=== PATIENT | female | born 1930 | race Caucasian/White ===

== ENCOUNTER → 2016-10-17 | Outpatient (CLI) | payer OTHER ==
[2016-10-17 12:40] LABS: ALBUMIN 3.9 GM/DL (3.2-5.2); ALBUMIN/GLOBULIN RATIO 1.34 (1.00-1.93); BILIRUBIN,TOTAL 0.7 MG/DL (0.2-1.0); CALCIUM LEVEL 9.3 MG/DL (8.8-10.2); CREATININE FOR GFR 1.12 MG/DL (0.55-1.02); POTASSIUM SERUM 4.4 MEQ/L (3.5-5.1); TOTAL PROTEIN 6.8 GM/DL (6.4-8.2)
== END | disposition home or self-care (01) ==
LOC: M WUC 09:31
PROVIDERS: ATTEND Internal Medicine
DX: E11.9 Type 2 diabetes mellitus without complications (principal)

== ENCOUNTER → 2017-04-30 | Outpatient (REF) | payer OTHER ==
[2017-04-30 15:14] LABS: MEAN CORPUSCULAR HEMOGLOBIN 28.2 pg (27.0-33.0); MEAN CORPUSCULAR HGB CONC 32.3 g/dl (32.0-36.5); MEAN CORPUSCULAR VOLUME 87.2 fl (80.0-96.0); RED CELL DISTRIBUTION WIDTH 13.6 % (11.5-14.5)
[2017-04-30 15:22] LABS: ALBUMIN 3.9 GM/DL (3.2-5.2); ALBUMIN/GLOBULIN RATIO 1.26 (1.00-1.93); BILIRUBIN,TOTAL 0.4 MG/DL (0.2-1.0); CREATININE FOR GFR 1.12 MG/DL (0.55-1.02); POTASSIUM SERUM 4.7 MEQ/L (3.5-5.1)
== END ==
LOC: M SFHCPLAZ 10:35
PROVIDERS: ATTEND Internal Medicine
DX: E11.9 Type 2 diabetes mellitus without complications (principal); K21.9 Gastro-esophageal reflux disease without esophagitis; E78.00 Pure hypercholesterolemia, unspecified

== ENCOUNTER → 2017-10-31 | Outpatient (REF) | payer OTHER ==
[2017-10-31 14:22] LABS: PTH INTACT 8.7 PG/ML (14.0-72.0)
[2017-10-31 14:23] LABS: ALBUMIN 3.7 GM/DL (3.2-5.2); ALBUMIN/GLOBULIN RATIO 1.23 (1.00-1.93); ALKALINE PHOSPHATASE 52 U/L (45-117); ALT/SGPT 27 U/L (12-78); ANION GAP 9 MEQ/L (8-16); AST/SGOT 21 U/L (7-37); BILIRUBIN,TOTAL 0.5 MG/DL (0.2-1.0); BLOOD UREA NITROGEN 36 MG/DL (7-18); CALCIUM LEVEL 9.5 MG/DL (8.8-10.2); CARBON DIOXIDE LEVEL 30 MEQ/L (21-32); CHLORIDE LEVEL 102 MEQ/L (98-107); CREATININE FOR GFR 1.13 MG/DL (0.55-1.02); GLOMERULAR FILTRATION RATE 48.4 (>32); GLUCOSE, FASTING 113 MG/DL (70-100); POTASSIUM SERUM 4.3 MEQ/L (3.5-5.1); SODIUM LEVEL 141 MEQ/L (136-145); TOTAL PROTEIN 6.7 GM/DL (6.4-8.2)
[2017-10-31 15:03] LABS: ESTIMATED AVERAGE GLUCOSE 143 MG/DL (60-110); HEMOGLOBIN A1c 6.6 %
== END ==
LOC: M SFHCPLAZ 10:03
DX: E11.22 Type 2 diabetes mellitus with diabetic chronic kidney disease (principal); N18.3 Chronic kidney disease, stage 3 (moderate)
CPT/HCPCS: 80053

== ENCOUNTER → 2018-04-30 | Outpatient (REF) | payer OTHER ==
[2018-04-30 11:44] LABS: HEMATOCRIT 38.9 % (36.0-47.0); HEMOGLOBIN 12.8 g/dl (12.0-15.5); MEAN CORPUSCULAR HEMOGLOBIN 27.5 pg (27.0-33.0); MEAN CORPUSCULAR HGB CONC 32.9 g/dl (32.0-36.5); MEAN CORPUSCULAR VOLUME 83.5 fl (80.0-96.0); PLATELET COUNT, AUTOMATED 219 10^3/uL (150-450); RED BLOOD COUNT 4.66 10^6/uL (4.00-5.40); RED CELL DISTRIBUTION WIDTH 14.6 % (11.5-14.5); WHITE BLOOD COUNT 4.8 10^3/uL (4.0-10.0)
[2018-04-30 12:26] LABS: ALBUMIN 3.4 GM/DL (3.2-5.2); ALKALINE PHOSPHATASE 61 U/L (45-117); ALT/SGPT 27 U/L (12-78); ANION GAP 8 MEQ/L (8-16); AST/SGOT 17 U/L (7-37); BILIRUBIN,TOTAL 0.4 MG/DL (0.2-1.0); BLOOD UREA NITROGEN 38 MG/DL (7-18); CALCIUM LEVEL 9.7 MG/DL (8.8-10.2); CARBON DIOXIDE LEVEL 31 MEQ/L (21-32); CHLORIDE LEVEL 104 MEQ/L (98-107); CHOLESTEROL LEVEL 156 MG/DL (<200); CHOLESTEROL RISK RATIO 1.793 (<5); GLOMERULAR FILTRATION RATE 45.1 (>32); GLUCOSE, FASTING 95 MG/DL (70-100); HDL CHOLESTEROL 87 MG/DL (>40); MAGNESIUM LEVEL 1.7 MG/DL (1.8-2.4); NON-HDL-C 69 MG/DL; SODIUM LEVEL 143 MEQ/L (136-145); TOTAL PROTEIN 6.5 GM/DL (6.4-8.2); TRIGLYCERIDES LEVEL 105 MG/DL (<150)
[2018-04-30 12:27] LABS: TOTAL 25(OH) VITAMIN D 80.1 NG/ML (30.0-100.0)
[2018-04-30 12:28] LABS: PTH INTACT 19.6 PG/ML (18.5-88.0)
[2018-04-30 12:42] LABS: CREATININE, URINE 83.3 MG/DL; MALB URINE SIEMENS 8.6 MG/L; MAU/CREAT RATIO 10.3 MCG/MG (0.0-30.0)
[2018-04-30 14:33] LABS: ESTIMATED AVERAGE GLUCOSE 146 MG/DL (60-110); HEMOGLOBIN A1c 6.7 %
== END ==
LOC: M SFHCPLAZ 10:09
DX: N18.3 Chronic kidney disease, stage 3 (moderate) (principal); I12.9 Hypertensive chronic kidney disease with stage 1 through stage 4 chronic kidney disease, or unspecified chronic kidney disease; E11.22 Type 2 diabetes mellitus with diabetic chronic kidney disease; E78.00 Pure hypercholesterolemia, unspecified; M85.80 Other specified disorders of bone density and structure, unspecified site
CPT/HCPCS: 83735

== ENCOUNTER → 2018-11-04 | Outpatient (REF) | payer MEDICARE ==
[~2018-11-04] MED LIST: ANOR1AER INH; ANORO; ASPI1TAB20 PO; CHLO125TA; CHLO25TA PO; LISI10TA4 PO; METF-723 PO; OMEP20CA3 PO; PRAV20TA2 PO
[2018-11-04 12:01] LABS: ALBUMIN 3.7 GM/DL (3.2-5.2); BILIRUBIN,TOTAL 0.5 MG/DL (0.2-1.0); CREATININE FOR GFR 1.11 MG/DL (0.55-1.30); GLOMERULAR FILTRATION RATE 49.3 (>32); MAGNESIUM LEVEL 1.7 MG/DL (1.8-2.4); POTASSIUM SERUM 4.5 MEQ/L (3.5-5.1); TOTAL PROTEIN 6.6 GM/DL (6.4-8.2)
[2018-11-04 12:13] LABS: HEMOGLOBIN A1c 7.3 %
== END ==
LOC: M SFHCPLAZ 09:22
PROVIDERS: ATTEND Internal Medicine
DX: I12.9 Hypertensive chronic kidney disease with stage 1 through stage 4 chronic kidney disease, or unspecified chronic kidney disease (principal); E11.9 Type 2 diabetes mellitus without complications
CPT/HCPCS: 80053; 83036; 83735; G0463

== ENCOUNTER 2018-11-21 09:40 | Inpatient (IN) | payer MEDICARE, OTHER ==
[~2018-11-21] VITALS: Ht 157.5 cm; Wt 48.0 kg
[2018-11-21] MEDS ORDERED: ANORO (09:51)
[2018-11-21] MEDS ORDERED: PRAV20TA2 PO (09:51)
[2018-11-21] MEDS ORDERED: LISI10TA4 PO (09:51)
[2018-11-21] MEDS ORDERED: METF-723 PO (09:51)
[2018-11-21] MEDS ORDERED: OMEP20CA3 PO (09:51)
[2018-11-21] MEDS ORDERED: CHLO125TA (09:51)
[2018-11-21 10:23] LABS: VENOUS BASE EXCESS 3.7 (-2.0-2.0); VENOUS HCO3 31.3 MEQ/L (23.0-27.0); VENOUS O2 SATURATION 44.2 % (60.0-80.0); VENOUS PARTIAL PRESSURE CO2 59.9 mmHg (38.0-50.0); VENOUS PARTIAL PRESSURE O2 27.6 mmHg (30.0-50.0); VENOUS PH 7.336 UNITS (7.330-7.430); VENOUS STANDARD HCO3 26.4 MEQ/L; VENOUS TOTAL CO2 33.1 MEQ/L (24.0-28.0)
[2018-11-21 10:25] LABS: BASO % 0.6 % (0.0-1.0); HEMATOCRIT 39.5 % (36.0-47.0); HEMOGLOBIN 13.1 g/dl (12.0-15.5); LYMPH # 1.5 10^3/uL (1.5-4.5); MEAN CORPUSCULAR HEMOGLOBIN 27.6 pg (27.0-33.0); MEAN CORPUSCULAR HGB CONC 33.2 g/dl (32.0-36.5); MEAN CORPUSCULAR VOLUME 83.3 fl (80.0-96.0); MONO # 0.4 10^3/uL (0.0-0.8); MONO % 7.1 % (0.0-5.0); NEUTROPHILS # 3.3 10^3/uL (1.8-7.7); NEUTROPHILS % 62.9 % (36.0-66.0); PLATELET COUNT, AUTOMATED 212 10^3/uL (150-450); RED BLOOD COUNT 4.74 10^6/uL (4.00-5.40); WHITE BLOOD COUNT 5.2 10^3/uL (4.0-10.0)
--- NOTE | 2018-11-21 10:36 | REP ---
CT Head without contrast HISTORY: Altered mental status COMPARISON: None Areas of decreased attenuation are present in the periventricular white matter. This represents small-vessel ischemic disease. There is no intraparenchymal hemorrhage, acute infarct, mass or midline shift. The ventricular system and cortical sulci as well as subarachnoid space in the posterior fossa are dilated consistent with mild volume loss. There is no extra cerebral collection. There is no fracture. Small osteomas 5 and 6 mm in size are present arising from the frontal bone in the midline. The visualized sinuses are clear. IMPRESSION: 1. Small vessel ischemic disease. 2. Mild volume loss. Electronically Signed by Alvarez Barahona MD 11/21/2018 10:27 A
[2018-11-21] MEDS ORDERED: NS 500 ML IV ONE ×2 (11:00→12:15)
[2018-11-21 11:05] LABS: ACETAMINOPHEN LEVEL < 2.0 UG/ML (10.0-30.0); ALBUMIN 3.8 GM/DL (3.2-5.2); ALT/SGPT 24 U/L (12-78); BILIRUBIN,DIRECT 0.1 MG/DL (0.0-0.2); BILIRUBIN,TOTAL 0.5 MG/DL (0.2-1.0); BLOOD UREA NITROGEN 40 MG/DL (7-18); CALCIUM LEVEL 9.3 MG/DL (8.8-10.2); CARBON DIOXIDE LEVEL 33 MEQ/L (21-32); CHLORIDE LEVEL 99 MEQ/L (98-107); CPK CREATINE PHOSPHOKINASE 60 U/L (26-192); CREATININE FOR GFR 1.11 MG/DL (0.55-1.30); ETHYL ALCOHOL (ETHANOL) < 0.003 % (0.000-0.010); GLOMERULAR FILTRATION RATE 49.3 (>32); GLUCOSE, FASTING 144 MG/DL (70-100); MB/CK RELATIVE INDEX 4.17 (< OR =4); SALICYLATE LEVEL < 1.7 MG/DL (5.0-30.0); SODIUM LEVEL 138 MEQ/L (136-145); TOTAL PROTEIN 6.6 GM/DL (6.4-8.2); TROPONIN I < 0.02 NG/ML (< 0.10)
--- NOTE | 2018-11-21 11:06 | REP ---
CHEST, PORTABLE: AP portable views of the chest are performed. Comparison is made with prior study of 06/20/2012. There is mild biapical pleural thickening and scattered interstitial fibrotic scarring appearing stable. No new infiltrate is seen. Heart is not enlarged. There is calcification and tortuosity of the thoracic aorta. The mediastinal silhouette is unchanged. IMPRESSION: Stable chronic changes without evidence of acute infiltrate. Electronically Signed by Taco Nielson MD 11/22/2018 10:15 A
[2018-11-21] MEDS ORDERED: CHLO25TA PO (12:58)
[2018-11-21] MEDS ORDERED: ANOR1AER INH (12:58)
[2018-11-21 14:10] LABS: AMPHETAMINES LEVEL URINE NEGATIVE (NEGATIVE); BARBITURATES URINE NEGATIVE (NEGATIVE); BENZODIAZEPINES URINE NEGATIVE (NEGATIVE); CANNABINOIDS URINE NEGATIVE (NEGATIVE); COCAINE METABOLITE URINE NEGATIVE (NEGATIVE); METHADONE URINE NEGATIVE (NEGATIVE); OPIATES URINE NEGATIVE (NEGATIVE); PHENCYCLIDINE URINE NEGATIVE (NEGATIVE)
[2018-11-21] MEDS: ASPIRIN 325 MG TAB PO SCH (16:48)
[2018-11-21 17:08] LABS: CALCIUM LEVEL 8.6 MG/DL (8.8-10.2); GLOMERULAR FILTRATION RATE 55.6 (>32); POTASSIUM SERUM 4.2 MEQ/L (3.5-5.1)
[2018-11-21] MEDS: NS 1,000 ML IV SCH (18:05)
--- NOTE | 2018-11-21 18:19 | REPVR ---
EXAM: MR Head Without Contrast EXAM DATE/TIME: 11/21/2018 2:17 PM CLINICAL HISTORY: 88 years old, female; Signs and symptoms; Weakness, facial; Additional info: Aphasia TECHNIQUE: MR of the head without contrast. COMPARISON: MRA BRAIN W/O CONTRAST 11/21/2018 5:21 PM FINDINGS: Brain: Focus of abnormal signal in the right thalamus, vaguely hypointense on T1-weighted images, T2 hyperintense demonstrating abnormal signal on diffusion weighted and ADC map images consistent with a subacute to acute right thalamic infarct. Multiple foci of T2 lengthening are demonstrated in the subcortical, periventricular and centrum semiovale white matter consistent with age-related small vessel gliosis. Ventricles: The degree of ventricular dilatation is normal for age. No pathologic enlargement demonstrated. Bones/joints: Unremarkable. Soft tissues: Normal. Sinuses: Normal as visualized. No acute sinusitis. Mastoid air cells: Normal as visualized. No mastoid effusion. Orbits: Unremarkable. IMPRESSION: 1. Focus of abnormal signal in the right thalamus, vaguely hypointense on T1-weighted images, T2 hyperintense demonstrating abnormal signal on diffusion weighted and ADC map images consistent with a subacute to acute right thalamic infarct. 2. Multiple foci of T2 lengthening are demonstrated in the subcortical, periventricular and centrum semiovale white matter consistent with age-related small vessel gliosis. A critical call has been made to speak with the ordering physician/practitioner. This report will be amended once consultation has occurred. Electronically signed by: Nahid Apple On 11/21/2018 18:19:07 PM
--- NOTE | 2018-11-21 18:24 | REPVR ---
EXAM: MR Angiogram Head Without Contrast, Arteries EXAM DATE/TIME: 11/21/2018 2:17 PM CLINICAL HISTORY: 88 years old, female; Signs and symptoms; Weakness; Additional info: Aphasia TECHNIQUE: MR angiogram head without contrast. Exam focused on the arteries. COMPARISON: CT Head without contrast 11/21/2018 10:11 AM FINDINGS: Right internal carotid artery: Luminal irregularity the right cranial carotid artery consistent with atherosclerosis. No high-grade stenosis. Right anterior cerebral artery: Unremarkable. No occlusion or significant stenosis. No aneurysm. Right middle cerebral artery: Unremarkable. No occlusion or significant stenosis. No aneurysm. Right posterior cerebral artery: Unremarkable. No occlusion or significant stenosis. No aneurysm. Right vertebral artery: Unremarkable. No occlusion or significant stenosis. No aneurysm. Left internal carotid artery: Luminal irregularity left intracranial carotid artery consistent with atherosclerosis. No high-grade stenosis. Left anterior cerebral artery: Unremarkable. No occlusion or significant stenosis. No aneurysm. Left middle cerebral artery: Unremarkable. No occlusion or significant stenosis. No aneurysm. 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 Left vertebral artery: Unremarkable. No occlusion or significant stenosis. No aneurysm. Basilar artery: Tortuous basilar artery. 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 Bilateral atherosclerotic changes in the intracranial carotid arteries without evidence of a high-grade stenosis. Tortuous basilar artery. Electronically signed by: Nahid Apple On 11/21/2018 18:23:58 PM
--- NOTE | 2018-11-21 18:52 | HPE ---
DATE OF ADMISSION: 11/21/2017 88-year-old female with a past medical history of hypertension, diabetes, hyperlipidemia, presents to the emergency room due to an expressive aphasia that she encountered this morning. Apparently when she woke up this morning, her daughter realized that she was not making any sense with her words and was forgetting simple ideas and tasks, so she had her come to the emergency room (ER) for evaluation. In the emergency room (ER), she had a CT of the head, which was negative for any bleed or mass effect and had a negative urinalysis with normal electrolytes. The patient does understand that she is forgetting simple concepts and things that she has known before and cannot explain why. For example, I showed her a pin and she knew what it was and what it does, but did not know what the name was. She is awake, alert and oriented times two. Again, when asked if she knew who the vice president of software engineering was, she was able to described him, but just did not know what his name was. According to the family members, she knew who the current president is very well. She will be admitted for further management. PAST MEDICAL HISTORY: 1. Hypertension. 2. Diabetes. 3. Hyperlipidemia. ALLERGIES: She has no known drug allergies. FAMILY HISTORY: Negative for any early strokes in the family. SOCIAL HISTORY: The patient denies tobacco, alcohol or illicit drugs. MEDICATIONS SHE TAKES AT HOME: - Anoro Ellipta one puff inhaled daily - chlorthalidone 12.5 mg orally daily - lisinopril 10 mg orally daily - metformin 500 mg orally twice daily - omeprazole 20 mg orally daily - pravastatin 20 mg orally daily REVIEW OF SYSTEMS: Negative for all 10 major systems, except what is mentioned in the history of present illness. VITAL SIGNS: Blood pressure 129/64, heart rate is 90 and regular, [id number], temperature 98.9, oxygen saturation 98% on room air. Head is atraumatic, normocephalic. Neck supple. No jugular venous distension (JVD). Lungs are clear to auscultation. S1, S2 audible. No murmurs appreciated. Abdomen soft, positive bowel sounds. No pedal edema. Skin intact. Neurologic examination: The patient has +5 strength bilaterally. +2 reflexes bilaterally. No Babinski. Cranial nerves are grossly intact. LABORATORY: White blood count (WBC) is 5.2, hemoglobin is 15.1, hematocrit is 39.5, platelets are 212,000. Sodium 138, potassium 4.0, chloride 99, CO2 33, BUN is 40, creatinine is 1.11, glucose is 144, lactic acid is 2.24. Thyroid simulating hormone (TSH) is 1.42. IMPRESSION: Acute ischemic stroke. PLAN: The patient is to be admitted to [facility] with telemetry. Will get the patient an Magnetic Resonance Imaging (MRI) and Magnetic Resonance Angiography (MRA) and have an echocardiogram done as well. Will start on aspirin 81 mg orally daily, first dose stat and I will give her gentle hydration and normal saline at 100 an hour. Neurology, Dr. Garibay is aware and is on official consult and will be looking forward to his recommendation and will also continue her preadmission medications.
[2018-11-21 20:45] VITALS: BP 167/79
[2018-11-21] MEDS: PRAVASTATIN 20 MG TAB PO SCH (21:02)
[2018-11-21 22:00] VITALS: BP 164/70
[2018-11-21] MEDS ORDERED: OMEPRAZOLE 20 MG CAP PO ONE (23:15)
--- NOTE | 2018-11-22 00:46 | ECGEPIP ---
Stationary ECG Study [facility] [place] - ED Test Date: 2018-11-21 Pat Name: LEELEE KEEN Department: Room: - Gender: F Chief Executive Or Managing Director: AUTUMN : 1930 Requested By: Edel Sauceda Order Number: [id number] Reading MD: Oswaldo Manzo Measurements Intervals Rayle Rate: 80 P: 71 MO: 177 QRS: -51 QRSD: 128 T: 44 QT: 392 QTc: 454 Interpretive Statements SINUS RHYTHM RIGHT BUNDLE BRANCH BLOCK LEFT ANTERIOR FASCICULAR BLOCK NO PRIORS FOR COMPARISON Electronically Signed On 11-22-2018 0:46:02 EST by Oswaldo Manzo
[2018-11-22] MEDS: NS 1,000 ML IV SCH ×2 (04:12→15:07)
[2018-11-22 05:43] LABS: BASO % 0.4 % (0.0-1.0); EOS % 0.4 % (0.0-3.0); HEMATOCRIT 34.5 % (36.0-47.0); HEMOGLOBIN 11.2 g/dl (12.0-15.5); LYMPH # 1.6 10^3/uL (1.5-4.5); LYMPH % 32.6 % (24.0-44.0); MEAN CORPUSCULAR HEMOGLOBIN 27.1 pg (27.0-33.0); MEAN CORPUSCULAR HGB CONC 32.5 g/dl (32.0-36.5); MEAN CORPUSCULAR VOLUME 83.3 fl (80.0-96.0); MONO # 0.5 10^3/uL (0.0-0.8); MONO % 9.4 % (0.0-5.0); NEUTROPHILS # 2.7 10^3/uL (1.8-7.7); PLATELET COUNT, AUTOMATED 175 10^3/uL (150-450); RED BLOOD COUNT 4.14 10^6/uL (4.00-5.40); WHITE BLOOD COUNT 4.8 10^3/uL (4.0-10.0)
[2018-11-22 06:00] VITALS: BP 126/64
[2018-11-22] MEDS: ASPIRIN 325 MG TAB PO SCH (08:37)
[2018-11-22] MEDS ORDERED: CHLORTHALIDONE 12.5MG PER 1/2 TABLET PO SCH (09:00)
[2018-11-22] MEDS ORDERED: metFORMIN XR 500MG TAB *GLUCOPHAGE XR PO SCH (09:00)
[2018-11-22] MEDS ORDERED: OMEPRAZOLE 20 MG CAP PO SCH (09:00)
[2018-11-22] MEDS ORDERED: LISINOPRIL 10 MG TAB PO SCH (09:00)
--- NOTE | 2018-11-22 13:08 | CR ---
DATE OF CONSULTATION: 11/21/2018 REASON FOR CONSULTATION: Altered mental status. HISTORY OF PRESENT ILLNESS: The patient is an 88-year-old female with past medical history significant for diabetes, hyperlipidemia, and hypertension presenting with chief complaint of waking up in the morning with having difficulty expressing her thoughts and some language difficulties. The patient denied any sensory or motor changes. She denies any ataxia, dizziness, dysarthria or dysphagia. The patient was sent for an MRI of the brain. The MRI shows an acute infarction of the right thalamus explaining the patient's symptoms. The patient was taking aspirin 81 mg daily at home. She has been asked to increase her aspirin to 325 mg daily. She takes Pravachol 20 mg daily. The patient will have her systolic blood pressures managed 140-180 over the next 48-72 hours. She will be on telemetry monitoring. The patient will require physical therapy (PT), occupational therapy (OT) as well as an echocardiogram. The patient is a former smoker. REVIEW OF SYSTEMS: A 14-point review of systems was obtained and is negative except as per history of present illness (HPI). PAST MEDICAL HISTORY: Diabetes, hypertension, hyperlipidemia, gastroesophageal reflux disease, chronic kidney disease stage III, chronic obstructive pulmonary disease (COPD), urinary incontinence, osteopenia. PAST SURGICAL HISTORY: Colonoscopy, right cataract surgery in 2007, left cataract surgery in 2016. FAMILY HISTORY: Noncontributory. ALLERGIES: NO KNOWN DRUG ALLERGIES. HOME MEDICATIONS: - aspirin 81 mg daily - metformin 5 mg daily - Pravachol 20 mg by mouth daily - Prilosec 20 mg daily by mouth daily - lisinopril 10 mg by mouth daily - chlorthalidone 12.5 mg by mouth daily IMAGING STUDIES: Head CT revealed small vessel ischemic disease, mild volume loss. Lactic acid was 2.4 and then elevated at 3.7. Urine toxicology and urinalysis were negative. BUN was slightly elevated. PHYSICAL EXAMINATION: Blood pressure 129/64, pulse rate 90, respiratory rate 16, temperature is 98.9 degrees Fahrenheit and oxygenation is 98% on room air. The patient is awake, alert, oriented to person, place and time. Speech, language and comprehension are intact. The patient can repeat. She can name. She can read. Pupils are 2.5 mm, round and reactive to light. Extraocular movements are intact in all directions. Sensation V1, V2 and V3 is intact to light touch. No facial asymmetry to activation. Palate elevates symmetrically. Tongue is midline. No weakness of sternocleidomastoids bilaterally. Hearing is subjectively equal to finger rub. There is no pronator drift. Strength is 5/5 including bilateral deltoid, biceps, triceps, handgrip, iliopsoas, quadriceps, anterior tibialis, quadriceps, iliopsoas. Sensory is intact to light touch in all four extremities. Coordination: Normal [id number] without any signs of ataxia or dysmetria. Gait deferred. Sensory is intact to light touch upper extremities. ASSESSMENT: Acute right thalamic lacunar infarction. PLAN: 1. Increase aspirin to 325 mg by mouth daily. Continue Pravastatin daily. 2. Continue telemetry monitoring. 3. PT/OT evaluation. 4. Echocardiogram. 5. Carotid ultrasound. 6. MRI scan of the brain. The case was discussed with the patient and the patient's son and grandson at length and discussed with primary care team. Incidental finding 5-6 mm osteoma of insignificance at this time.
[2018-11-22 14:00] VITALS: BP 156/71
[2018-11-22] MEDS ORDERED: GLUCOSE 4 GM CHEW TABLET PO PRN (17:15)
[2018-11-22] MEDS ORDERED: DEXTROSE 50% 50 ML SYRINGE IV PRN (17:15)
[2018-11-22] MEDS ORDERED: GLUCAGON FOR INJ 1 MG VIAL (J1610) SC PRN (17:15)
--- NOTE | 2018-11-22 17:17 | IPNPDOC ---
Text Note Date of Service The patient was seen on 11/22/18. NOTE Subjective: Patient is a 88 year old female with a PMHx of HTN, NIDDM2, DLP who presented to the ER with difficulty expressing herself. Patient was suspected of having acute cerebrovascular event versus transient ischemic attack and was admitted to the hospitalist service for further evaluation and treatment. Neurology was called on consultation. Patient was seen and examined at the bedside. , Currently patient has had resolution of her symptoms. She denies any nausea, vomiting, abdominal pain, constipation, diarrhea, discomfort with urination. Patient denies chest pain, shortness of breath or palpitations. Objective: Vitals (See below) General: Lying in bed, no acute distress, comfortable, AAOx3 HEENT: NC, AT CVS: RRR, +S1S2 Lungs: Fair air entry b/l, -w/r/r Abdomen: Soft, ND, NT Extremities: - Edema, - Calf tenderness Assessment and plan: Difficulty expressing self - likely 2/2 acute CVA - Currently patient has had full resolution of her symptoms - No focal neurologic deficits - Lab work unremarkable - CT head 11/21: 1. Small vessel ischemic disease. 2. Mild volume loss. 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 Bilateral atherosclerotic changes in the intracranial carotid arteries without evidence of a high-grade stenosis. Tortuous basilar artery. - MRI Brain 11/21: 1. Focus of abnormal signal in the right thalamus, vaguely hypointense on T1-weighted images, T2 hyperintense demonstrating abnormal signal on diffusion weighted and ADC map images consistent with a subacute to acute right thalamic infarct. 2. Multiple foci of T2 lengthening are demonstrated in the subcortical, periventricular and centrum semiovale white matter consistent with age-related small vessel gliosis. - ECHO pending, Carotid duplex pending - c/w ASA 325 and Pravastatin 20 HTN - Allow for permissive HTN; SBP of 140-160 - Discontinue Chlorthalidone and Lisinopril NIDDM2 - Will start ISS DLP - c/w Pravastatin Normocytic anemia - Hg appears slightly lower than baseline - Will continue to monitor GERD - c/w Omeprazole DVT prophylaxis - c/w SCD VS,Fishbone, I+O VS, Fishbone, I+O Laboratory Tests 11/22/18 05:12 Red Blood Count 4.14, Mean Corpuscular Volume 83.3, Mean Corpuscular Hemoglobin 27.1, Mean Corpuscular Hemoglobin Concent 32.5, Red Cell Distribution Width 14.6 H, Neutrophils (%) (Auto) 57.0, Lymphocytes (%) (Auto) 32.6, Monocytes (%) (Auto) 9.4 H, Eosinophils (%) (Auto) 0.4, Basophils (%) (Auto) 0.4, Neutrophils # (Auto) 2.7, Lymphocytes # (Auto) 1.6, Monocytes # (Auto) 0.5, Eosinophils # (Auto) 0.0, Basophils # (Auto) 0.0 Vital Signs Date Time Temp Pulse Resp B/P (MAP) Pulse Ox O2 Delivery O2 Flow Rate FiO2 11/22/18 06:00 97.2 67 20 126/64 (84) 98 11/21/18 20:33 Room Air I&O- Last 24 Hours up to 6 AM 11/22/18 06:00 Intake Total 1750 ml Output Total 790 ml Balance 960 ml ANTHONY RUIZ MD Nov 22, 2018 17:17
[2018-11-22] MEDS: HumaLOG INSULIN (NovoLOG) PER UNIT SC SCH (18:59)
--- NOTE | 2018-11-22 19:42 | REP ---
CAROTID DUPLEX ULTRASOUND: 11/22/2018. Clinical history: CVA. Findings: No prior study. Standard duplex techniques utilized bilaterally. There is some intimal thickening in the right common carotid artery with mixed plaque in the bulb and distal common carotid. This appears to be at least partially circumferential. There is some plaque in the proximal ICA. Intimal thickening. The left common carotid artery shows some intimal thickening was some mixed plaque in the mid to distal common carotid and mixed plaque posteriorly and laterally in the bulb. Some of this plaque extends into the proximal ICA and has irregular margins protruding into the lumen. CCA systolic: Right 0.62 M/S left 0.5 M/S ICA systolic right 0.48 M/S left 0.54 M/S ICA diastolic right 0.14 M/S left 0.11 M/S ECA systolic right 0.63 M/S left 0.93 M/S IC/CC ratio right 0.77 left 0.92 Cranial direction of flow seen in the vertebral arteries. Doppler waveform analysis show no significant spectral broadening or filling in of the systolic window. Impression: 1. Bilateral mild carotid disease, less than 50% stenosis without hemodynamically significant or flow restricting lesion. However the morphology of the plaque in the proximal left ICA is irregular and protruding into the lumen. 2. Cranial direction of flow vertebral arteries. Electronically Signed by George Maldonado MD 11/22/2018 08:19 P
--- NOTE | 2018-11-22 20:27 | ECHO ---
DATE OF PROCEDURE: 11/22/3018 AGE: 88 GENDER: Female. Height 62 inches. Weight 105 pounds. Body surface area 1.46 m2 Location: [address] [place] [address], room 4225. REFERRING PHYSICIAN: Dr. Valladares INDICATION: CVA - cardiac source of embolic material? MEASUREMENTS 2-D MEASUREMENTS: RV 3.2 cm LV 3.9 cm Septum 1.0 cm Posterior wall 1.0 cm Aortic root 3.0 cm LA 3.1 cm LVEF 75%. DOPPLER MEASUREMENTS: AV - 1.03 meters per second LVOT - 0.98 meters per second LVOT diameter 2.0 cm MV-E 71, A 92, E/A ratio is 0.8 Early mitral deceleration time 243 milliseconds E prime 7.8, A prime 9.4, E/E prime ratio 9 PV - 0.75 meters per second Pulmonary artery acceleration time 100 milliseconds RVSP 43 mmHg IVC - 1.6 cm COMMENTS: Normal sinus rhythm with right bundle branch block. M-mode and two-dimensional echocardiography was performed with pulsed, continuous wave, color flow and tissue Doppler studies. Normal left ventricular size and wall thickness with hyperkinetic wall motion. Normal left atrial size with Doppler sign of impaired LV diastolic relaxation but currently normal estimated mean left atrial pressure. Normal right heart chamber sizes and motion with Doppler evidence of mild - moderate pulmonary hypertension. Normal IVC size and collapse against an elevated central venous pressure. Mild aortic valvular sclerosis without stenosis, yet mild - moderate insufficiency. Normal aortic root size. Mild mitral annular thickening with mild mitral insufficiency. No apparent intracardiac mass or pericardial effusion. If cardiac source of embolic material is seriously suspect, transesophageal echocardiographic study would be advised. Anselmo Lorenzo MD [facility]
[2018-11-22] MEDS ORDERED: HumaLOG INSULIN (NovoLOG) PER UNIT SC SCH (21:00)
[2018-11-22] MEDS: PRAVASTATIN 20 MG TAB PO SCH (21:00)
[2018-11-22 22:00] VITALS: BP 135/71
[2018-11-23 06:00] VITALS: BP 140/72
[2018-11-23 06:24] LABS: BASO % 0.6 % (0.0-1.0); EOS % 0.2 % (0.0-3.0); HEMATOCRIT 35.3 % (36.0-47.0); HEMOGLOBIN 11.4 g/dl (12.0-15.5); LYMPH # 1.4 10^3/uL (1.5-4.5); LYMPH % 26.1 % (24.0-44.0); MEAN CORPUSCULAR HEMOGLOBIN 26.6 pg (27.0-33.0); MEAN CORPUSCULAR HGB CONC 32.3 g/dl (32.0-36.5); MEAN CORPUSCULAR VOLUME 82.3 fl (80.0-96.0); MONO # 0.5 10^3/uL (0.0-0.8); MONO % 9.8 % (0.0-5.0); NEUTROPHILS # 3.4 10^3/uL (1.8-7.7); NEUTROPHILS % 62.9 % (36.0-66.0); PLATELET COUNT, AUTOMATED 183 10^3/uL (150-450); RED BLOOD COUNT 4.29 10^6/uL (4.00-5.40); WHITE BLOOD COUNT 5.3 10^3/uL (4.0-10.0)
[2018-11-23 06:47] LABS: BLOOD UREA NITROGEN 26 MG/DL (7-18); CARBON DIOXIDE LEVEL 26 MEQ/L (21-32); CHLORIDE LEVEL 111 MEQ/L (98-107); CREATININE FOR GFR 0.82 MG/DL (0.55-1.30); GLOMERULAR FILTRATION RATE > 60.0 (>32); GLUCOSE, FASTING 118 MG/DL (70-100); MAGNESIUM LEVEL 1.6 MG/DL (1.8-2.4); POTASSIUM SERUM 4.1 MEQ/L (3.5-5.1); SODIUM LEVEL 144 MEQ/L (136-145)
[2018-11-23] MEDS ORDERED: MAG SULF 1GM/100ML (MAG RUN) 1 GM in APPROPRIATE DILUENT 1 EA IV ONE (07:15)
[2018-11-23] MEDS: ASPIRIN 325 MG TAB PO SCH (08:56)
[2018-11-23] MEDS: HumaLOG INSULIN (NovoLOG) PER UNIT SC SCH (08:59)
[2018-11-23] MEDS ORDERED: OMEPRAZOLE 20 MG CAP PO SCH (09:00)
[2018-11-23] MEDS ORDERED: ASPI1TAB20 PO (09:22)
--- NOTE | 2018-11-23 12:02 | DS.PDOC ---
Discharge Summary General Date of Admission Nov 21, 2018 at 15:47 Date of Discharge 11/23/18 Discharge Summary PROCEDURES PERFORMED DURING STAY: [None]. ADMITTING DIAGNOSES / DISCHARGE DIAGNOSES: Difficulty expressing self - likely 2/2 acute CVA HTN NIDDM2 DLP Normocytic anemia GERD DVT prophylaxis COMPLICATIONS/CHIEF COMPLAINT: Difficulty finding words / Confusion HISTORY OF PRESENT ILLNESS: Patient is a 88 year old female with a PMHx of HTN, NIDDM2, DLP who presented to the ER with difficulty expressing herself. Patient was suspected of having acute cerebrovascular event versus transient ischemic attack and was admitted to the hospitalist service for further evaluation and treatment. Neurology was called on consultation. HOSPITAL COURSE: Difficulty expressing self - likely 2/2 acute CVA - Currently patient has had full resolution of her symptoms - No focal neurologic deficits - Lab work unremarkable - CT head 11/21: 1. Small vessel ischemic disease. 2. Mild volume loss. 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 Bilateral atherosclerotic changes in the intracranial carotid arteries without evidence of a high-grade stenosis. Tortuous basilar artery. - MRI Brain 11/21: 1. Focus of abnormal signal in the right thalamus, vaguely hypointense on T1-weighted images, T2 hyperintense demonstrating abnormal signal on diffusion weighted and ADC map images consistent with a subacute to acute right thalamic infarct. 2. Multiple foci of T2 lengthening are demonstrated in the subcortical, periventricular and centrum semiovale white matter consistent with age-related small vessel gliosis. - Carotid duplex 11/22: Less than 50% stenosis, Mild-moderate aortic insuffi ciency, - ECHO 11/22: Preserved EF, G1DD, - c/w ASA 325 and Pravastatin 20 - Will have outpatient follow-up with Dr. Garibay and Dr. Almas Maria within 7 days HTN - s/p Permissive HTN; SBP of 140-160 - Can resume Chlorthalidone and Lisinopril upon discharge NIDDM2 - c/w ISS DLP - c/w Pravastatin Normocytic anemia - Hg appears slightly lower than baseline - Will continue to monitor GERD - c/w Omeprazole DVT prophylaxis - c/w SCD DISCHARGE MEDICATIONS: Please see below. ALLERGIES: Please see below. PHYSICAL EXAMINATION ON DISCHARGE: Vitals (See below) General: Lying in bed, no acute distress, comfortable, AAOx3 HEENT: NC, AT CVS: RRR, +S1S2 Lungs: Fair air entry b/l, no evidence of wheezing, rhonchi or rales Abdomen: Soft, nondistended, without tenderness Extremities: No evidence of lower extremity edema, - Calf tenderness LABORATORY DATA: Please see below. ACTIVITY: [As tolerated]. DISCHARGE PLAN: Follow-up with Dr. Garibay and Dr. Almas Maria within 7 days Remain complaints with treatment plan and medications Return to the ER if you experience any problems DISPOSITION: Home, Self-Care. DISCHARGE CONDITION: [Stable]. TIME SPENT ON DISCHARGE: Greater than [35] minutes. Vital Signs/I&Os Vital Signs Date Time Temp Pulse Resp B/P (MAP) Pulse Ox O2 Delivery O2 Flow Rate FiO2 11/23/18 06:00 97.2 64 16 140/72 (94) 98 11/21/18 20:33 Room Air I&O- Last 24 Hours up to 6 AM 11/23/18 06:00 Intake Total 560 ml Output Total 550 ml Balance 10 ml Laboratory Data Labs 24H Laboratory Tests 2 11/22/18 21:45: Bedside Glucose (Misc Panel) 119H 11/23/18 06:06: Immature Granulocyte % (Auto) 0.4, White Blood Count 5.3, Red Blood Count 4.29, Hemoglobin 11.4L, Hematocrit 35.3L, Mean Corpuscular Volume 82.3, Mean Corpuscular Hemoglobin 26.6L, Mean Corpuscular Hemoglobin Concent 32.3, Red Cell Distribution Width 14.5, Platelet Count 183, Neutrophils (%) (Auto) 62.9, Lymphocytes (%) (Auto) 26.1, Monocytes (%) (Auto) 9.8H, Eosinophils (%) (Auto) 0.2, Basophils (%) (Auto) 0.6, Neutrophils # (Auto) 3.4, Lymphocytes # (Auto) 1.4L, Monocytes # (Auto) 0.5, Eosinophils # (Auto) 0.0, Basophils # (Auto) 0.0, Nucleated Red Blood Cells % (auto) 0.0, Anion Gap 7L, Glomerular Filtration Rate > 60.0, Blood Urea Nitrogen 26H, Creatinine 0.82, Sodium Level 144, Potassium Level 4.1, Chloride Level 111H, Carbon Dioxide Level 26, Calcium Level 8.0L, Magnesium Level 1.6L CBC/BMP Laboratory Tests 11/23/18 06:06 Red Blood Count 4.29, Mean Corpuscular Volume 82.3, Mean Corpuscular Hemoglobin 26.6 L, Mean Corpuscular Hemoglobin Concent 32.3, Red Cell Distribution Width 14.5, Neutrophils (%) (Auto) 62.9, Lymphocytes (%) (Auto) 26.1, Monocytes (%) (Auto) 9.8 H, Eosinophils (%) (Auto) 0.2, Basophils (%) (Auto) 0.6, Neutrophils # (Auto) 3.4, Lymphocytes # (Auto) 1.4 L, Monocytes # (Auto) 0.5, Eosinophils # (Auto) 0.0, Basophils # (Auto) 0.0, Calcium Level 8.0 L FSBS Laboratory Tests Test 11/22/18 21:45 Range/Units Bedside Glucose (Misc Panel) 119 83-110 MG/DL Microbiology Microbiology 11/21/18 Blood Culture - Preliminary, Resulted No Growth after 48 hours. All Specime... 11/21/18 Blood Culture - Preliminary, Resulted No Growth after 48 hours. All Specime... 11/21/18 Respiratory Virus Panel (PCR) (TIMOTHY) - Final, Complete Discharge Medications Scheduled (Anoro Ellipta 62.5-25 Mcg/INH) 1 Aer Aer, 1 PUFF INH DAILY, (Reported) Aspirin (Aspirin) 325 Mg Tab, 325 MG PO DAILY Chlorthalidone (Chlorthalidone) 25 Mg Tab, 12.5 MG PO DAILY, (Reported) Lisinopril (Lisinopril) 10 Mg Tab, 10 MG PO DAILY, (Reported) Metformin Hydrochloride (Metformin Hydrochloride E) 500 Mg Tab, 500 MG PO BID, (Reported) Omeprazole (Omeprazole) 20 Mg Cap, 20 MG PO DAILY, (Reported) Pravastatin Sodium (Pravastatin Sodium) 20 Mg Tab, 20 MG PO DAILY, (Reported) Allergies Coded Allergies: No Known Allergies (Unverified , 05/02/16) ANTHONY RUIZ MD Nov 23, 2018 12:02
== END 2018-11-23 10:45 | disposition home or self-care (01) | DRG 66 ==
LOC: M ED 10:58 → M ED INP 15:47 → M MSPAV 20:39
PROVIDERS: ADMIT Internal Medicine; ATTEND Internal Medicine
DX: I63.59 Cerebral infarction due to unspecified occlusion or stenosis of other cerebral artery (principal); I12.9 Hypertensive chronic kidney disease with stage 1 through stage 4 chronic kidney disease, or unspecified chronic kidney disease; E11.22 Type 2 diabetes mellitus with diabetic chronic kidney disease; E78.5 Hyperlipidemia, unspecified; K21.9 Gastro-esophageal reflux disease without esophagitis; N18.3 Chronic kidney disease, stage 3 (moderate); J44.9 Chronic obstructive pulmonary disease, unspecified; Z79.84 Long term (current) use of oral hypoglycemic drugs; Z79.899 Other long term (current) drug therapy; Z79.82 Long term (current) use of aspirin; Z87.891 Personal history of nicotine dependence; R32 Unspecified urinary incontinence; M85.80 Other specified disorders of bone density and structure, unspecified site; Z98.41 Cataract extraction status, right eye; D64.9 Anemia, unspecified

== ENCOUNTER → 2019-05-12 | Outpatient (REF) | payer MEDICARE ==
[~2019-05-12] MED LIST changes: +ASPI-524 PO; -ASPI1TAB20 PO; -OMEP20CA3 PO; +OMEP20CA4 PO
[2019-05-12 13:41] LABS: HEMATOCRIT 42.7 % (36.0-47.0); HEMOGLOBIN 13.5 g/dl (12.0-15.5); MEAN CORPUSCULAR HGB CONC 31.6 g/dl (32.0-36.5); MEAN CORPUSCULAR VOLUME 85.4 fl (80.0-96.0); PLATELET COUNT, AUTOMATED 242 10^3/uL (150-450); WHITE BLOOD COUNT 6.4 10^3/uL (4.0-10.0)
[2019-05-12 13:54] LABS: HEMOGLOBIN A1c 6.9 %
[2019-05-12 14:05] LABS: ALBUMIN 3.8 GM/DL (3.2-5.2); BILIRUBIN,TOTAL 0.5 MG/DL (0.2-1.0); CALCIUM LEVEL 9.3 MG/DL (8.8-10.2); CHOLESTEROL RISK RATIO 2.052 (<5); CREATININE FOR GFR 1.19 MG/DL (0.55-1.30); GLOMERULAR FILTRATION RATE 45.5 (>32); MAGNESIUM LEVEL 1.9 MG/DL (1.8-2.4); POTASSIUM SERUM 4.7 MEQ/L (3.5-5.1); TOTAL PROTEIN 6.7 GM/DL (6.4-8.2)
[2019-05-12 14:08] LABS: PTH INTACT 31.1 PG/ML (18.5-88.0)
[2019-05-12 14:11] LABS: CREATININE, URINE 66.3 MG/DL; MALB URINE SIEMENS 5.4 MG/L; MAU/CREAT RATIO 8.1 MCG/MG (0.0-30.0)
== END ==
LOC: M SFHCPLAZ 09:30
PROVIDERS: ATTEND Internal Medicine
DX: K21.9 Gastro-esophageal reflux disease without esophagitis (principal); I12.9 Hypertensive chronic kidney disease with stage 1 through stage 4 chronic kidney disease, or unspecified chronic kidney disease; E11.9 Type 2 diabetes mellitus without complications; E78.00 Pure hypercholesterolemia, unspecified; N18.3 Chronic kidney disease, stage 3 (moderate)
CPT/HCPCS: 36415; 80053; 80061; 82043; 83036; 83735; 83970; 85027; G0463

== ENCOUNTER → 2019-07-10 | Outpatient (CLI) | payer MEDICARE ==
[~2019-07-10] MED LIST changes: -ASPI-524 PO; +ASPI325T57 PO
--- NOTE | 2019-07-10 13:51 | REP ---
CAROTID ULTRASOUND: Real-time ultrasound evaluation and duplex Doppler interrogation of the extracranial carotid vasculature is performed. Comparison made with a prior study 11/22/2018. There is mild to moderate plaquing and narrowing in both carotid bulbs extending into the internal and external carotid arteries. Luminal narrowing is less than 50%. There is no evidence of hemodynamically significant stenosis of either internal carotid artery. Normal flow velocities are seen. The vertebral arteries demonstrate normal direction of flow. RIGHT LEFT Peak systolic velocity ICA 43.4 cm/s 44.8 cm/s End diastolic velocity ICA 11.4 cm/s 14.9 cm/s Peak systolic velocity CCA 58.1 cm/s 57.0 cm/s Peak systolic velocity ECA 48.7 cm/s 56.7 cm/s ICA/CCA ratio 0.75 0.79 IMPRESSION: Bilateral luminal narrowing of the internal carotid arteries less than 50%. No evidence of hemodynamically significant stenosis. Electronically Signed by Taco Nielson MD 07/10/2019 01:43 P
== END ==
LOC: M RAD 09:48
PROVIDERS: ATTEND Surgery Vascular Surgery
DX: I65.23 Occlusion and stenosis of bilateral carotid arteries (principal)

== ENCOUNTER → 2019-08-12 | Outpatient (REF) | payer MEDICARE | LOC: M SFHCPLAZ 11:44 | PROVIDERS: ATTEND Family Medicine | DX: R30.0 Dysuria (principal) | CPT/HCPCS: 81002; 87088; 87186; G0463 ==